=== PATIENT | female | born 1960 | race Caucasian/White ===

== ENCOUNTER 2016-11-18 12:31 | Emergency (ER) | payer SELFPAY ==
[~2016-11-18] VITALS: Ht 160 cm; Wt 74.0 kg
[~2016-11-18 12:31] MED LIST: IBUP800T23 PO; NORV5TAB PO
[2016-11-18 12:35] VITALS: BP 180/120; PULSE 92; RESP 16; TEMP 98.5; O2SAT 94
--- NOTE | 2016-11-18 12:46 | PD ---
HPI Chief Complaint: Injury Time Seen by Provider: 12:46 Travel History International Travel<30 days: No Contact w/Intl Traveler<30days: No Traveled to known affect area: No History of Present Illness HPI 56-year-old female presents to the emergency department for evaluation of right ankle injury that occurred 2 days ago. Patient states that she got up in the middle of the night to get a drink of water and accidentally tripped over one of her dogs toys in her kitchen. States that she landed on her right ankle. Denies head trauma or loss of consciousness. States that she's had pain and swelling in the ankle since the injury occurred. Pain is aggravated with weightbearing and movement. Denies any alleviating factors. She has taken ibuprofen and applied ice with minimal improvement of symptoms. Denies any numbness or tingling or weakness. No prior injury or trauma to this ankle. No other complaints. PFSH Past Medical History Asthma: Yes Cancer: No Diabetes: No Diminished Hearing: No Hepatitis: No Hiatal Hernia: No Hypertension: Yes Reproductive: Yes (ABNORMAL UTERINE BLEEDING, 2009) Respiratory: No Thyroid Disease: No Influenza Vaccination: No ?: Not : 4 Para: 4 Dilation and Curettage (D&C): Yes (2010) Tubal Ligation: Yes Past Surgical History Abdominal Surgery: Yes (ABD. INCISIONAL HERNIA REPAIR WITH MESH IMPLANT, 2010) Appendectomy: Yes Cholecystectomy: Yes Gynecologic Surgery: Yes (2010 D&C) Other Surgery: Yes (BREAST AUGMENTATION) Social History Alcohol Use: Yes (OCCASIONAL) Tobacco Use: Yes (1/2 PPD) Substance Use: No Allergies-Medications (Allergen,Severity, Reaction): Coded Allergies: No Known Allergies (Verified , 11/18/16) Reported Meds & Prescriptions Reported Meds & Active Scripts Active Review of Systems Except as stated in HPI: all other systems reviewed are Neg Physical Exam Narrative GENERAL: Well-nourished and well-developed pleasant female patient in no acute distress who is nontoxic appearing. SKIN: Warm and dry. HEAD: Normocephalic and atraumatic. EYES: No injection, drainage, or hyphema noted. PERRLA. EOMI. ENT: No nasal drainage noted. Oropharynx is clear. NECK: Supple and the trachea is midline. CARDIOVASCULAR: Regular rate and rhythm. RESPIRATORY: Breath sounds are equal bilaterally with no accessory muscle use, wheezing, rhonchi, or crackles. EXTREMITY: The right ankle is swollen and tender over the lateral aspect but the skin is intact and there is no ligamentous instability. The foot and toes are warm and well-perfused. Sensation to pain and light touch is intact. NEUROLOGICAL: Awake, alert, and oriented. Normal speech and gait. Cranial nerves are grossly intact. Data Data Last Documented VS Vital Signs Date Time Temp Pulse Resp B/P Pulse Ox O2 Delivery O2 Flow Rate FiO2 11/18/16 12:35 98.5 92 16 180/120 94 Orders Ankle, Complete ([id number]) (11/18/16 12:46) Splint Or Brace Apply/Monitor (11/18/16 13:32) Crutches (11/18/16 13:32) [facility] Medical Decision Making Medical Screen Exam Complete: Yes Emergency Medical Condition: Yes Differential Diagnosis Ankle sprain versus contusion versus fracture Narrative Course 56-year-old female presents to the emergency department for evaluation of right ankle injury that occurred 2 days ago. Patient is afebrile, vital signs are stable. The right lower extremity is neurovascularly intact. X-ray imaging has been ordered and is pending. X-ray of the right ankle shows nondisplaced bimalleolar fracture, the ankle mortise is intact. I discussed case with my attending physician Dr. Daniel who also reviewed the x- ray images. We agree that the patient can be placed in a splint, made nonweightbearing and follow-up as an outpatient with orthopedic surgery. Discussed all of this with the patient. She verbalizes understanding and agreement with treatment plan. Diagnosis Primary Impression: Closed right ankle fracture Qualified Code: S82.891A - Closed right ankle fracture, initial encounter Referrals: Godfrey Garner MD Orthopaedic Surgeon Patient Instructions: Ankle Fracture (ED), General Instructions Additional Instructions: Splint. Elevate right foot. Do not bear weight on right foot. Apply ice for 20 minutes on, 20 minutes off. Take medication as prescribed with food and a full glass of water. Do not take Lortab with alcohol or while driving. Follow-up with an orthopedic surgeon. I have provided Dr. Garner's information. Return to the ED for any acute worsening of symptoms. Med/Other Pt SpecificInfo: Prescription(s) given Scripts Hydrocodone-Acetaminophen (Lortab)5-325 Mg Tab1 Tab PO Q6H PRN (PAIN GREATER THAN 6) #20 TAB Ref 0 Prov:Aubrey Daniel MD 11/18/16 Disposition: 01 DISCHARGE HOME Condition: Stable Ольга Coronado Nov 18, 2016 12:46
[2016-11-18] MEDS ORDERED: HYDR-3533 PO (13:33)
--- NOTE | 2016-11-18 13:37 | RADHPO ---
EXAM DATE/TIME: 11/18/2016 13:04 [facility] COMPARISON: No previous studies available for comparison. INDICATIONS : Right ankle pain after sliiping on a dog toy two days ago. MEDICAL HISTORY : Hypertension. Smoker. Asthma. Previous ankle fracture. SURGICAL HISTORY : None. ENCOUNTER: Initial ACUITY: 2 days PAIN SCORE: 10/10 LOCATION: Bimalleolar. FINDINGS: There are complete fractures of the medial malleolus and lateral malleolus and the lateral malleolar fracture is minimally displaced. Soft tissue swelling is seen. CONCLUSION: Bimalleolar fracture. Sherri Dunaway MD on November 18, 2016 at 13:33 Board Certified Radiologist. This report was verified electronically.
== END 2016-11-18 14:20 | disposition home or self-care (01) ==
LOC: PHEFT 12:31
DX: S82.844A Nondisplaced bimalleolar fracture of right lower leg, initial encounter for closed fracture (principal); I10 Essential (primary) hypertension; F17.200 Nicotine dependence, unspecified, uncomplicated; Z87.09 Personal history of other diseases of the respiratory system; Z87.42 Personal history of other diseases of the female genital tract; W18.09XA Striking against other object with subsequent fall, initial encounter; Y92.000 Kitchen of unspecified non-institutional (private) residence as the place of occurrence of the external cause
CPT/HCPCS: 29515; 73610; 99283; E0113

== ENCOUNTER 2017-10-02 14:25 | Emergency (ER) | payer OTHER ==
[~2017-10-02] VITALS: Ht 157.5 cm; Wt 71.0 kg
[~2017-10-02 14:25] MED LIST changes: +HYDR-3533 PO; -IBUP800T23 PO; -NORV5TAB PO
[2017-10-02 14:31] VITALS: BP 207/137; PULSE 98; RESP 16; TEMP 97.8; O2SAT 97
[2017-10-02] MEDS ORDERED: SODIUM CHLORIDE 0.9% FLUSH 10 ML FLUSH IV FLUSH PRN (16:00)
--- NOTE | 2017-10-02 16:01 | PD ---
HPI Chief Complaint: GI Complaint Time Seen by Provider: 15:43 Travel History International Travel<30 days: No Contact w/Intl Traveler<30days: No Traveled to known affect area: No History of Present Illness HPI This patient complains of abdominal pain. Location is left lower quadrant. Duration 2 hours. Severity is moderate. She has some nausea but no vomiting or diarrhea or fever. No alleviating factors. No Exacerbating factors. She has no appendix or gallbladder. She has abdominal hernia repair with mesh. PFSH Past Medical History Asthma: Yes Cancer: No Diabetes: No Diminished Hearing: No Hepatitis: No Hiatal Hernia: No Hypertension: Yes Reproductive: Yes (ABNORMAL UTERINE BLEEDING, 2009) Respiratory: No Thyroid Disease: No : 4 Para: 4 Dilation and Curettage (D&C): Yes (2010) Tubal Ligation: Yes Past Surgical History Abdominal Surgery: Yes (ABD. INCISIONAL HERNIA REPAIR WITH MESH IMPLANT, 2010) Appendectomy: Yes Cholecystectomy: Yes Gynecologic Surgery: Yes (2010 D&C) Other Surgery: Yes (BREAST AUGMENTATION) Social History Alcohol Use: Yes (OCCASIONAL) Tobacco Use: Yes (08/01 PPD) Substance Use: No Allergies-Medications (Allergen,Severity, Reaction): Coded Allergies: No Known Allergies (Verified Adverse Reaction, Unknown, 10/02/17) Reported Meds & Prescriptions Reported Meds & Active Scripts Active Reported Ibuprofen 600 Mg Tab 600 Mg PO DAILY Review of Systems General / Constitutional: No: Fever Eyes: No: Visual changes HENT: No: Headaches Cardiovascular: No: Chest Pain or Discomfort Respiratory: No: Shortness of Breath Gastrointestinal: Positive: Abdominal Pain Genitourinary: No: Dysuria Musculoskeletal: No: Pain Skin: No Rash Neurologic: No: Weakness Psychiatric: No: Depression Endocrine: No: Polydipsia Hematologic/Lymphatic: No: Easy Bruising Physical Exam Narrative GENERAL: Well-nourished, well-developed patient with abdominal pain . SKIN: Focused skin assessment reveals no rash and nodules. Skin is Warm and dry. HEAD: Atraumatic. Normocephalic. EYES: Pupils equal and round. No scleral icterus. No injection or drainage. ENT: No nasal bleeding or discharge. Mucous membranes pink and moist. NECK: Trachea midline. No JVD. CARDIOVASCULAR: Regular rate and rhythm. No murmur appreciated. RESPIRATORY: No accessory muscle use. Clear to auscultation. Breath sounds equal bilaterally. GASTROINTESTINAL: Abdomen soft, left lower quadrant is tender without rebound or guarding , nondistended. Hepatic and splenic margins not palpable. MUSCULOSKELETAL: No obvious deformities. No clubbing. No cyanosis. No edema. NEUROLOGICAL: Awake and alert. No obvious cranial nerve deficits. Motor grossly within normal limits. Normal speech. PSYCHIATRIC: Appropriate mood and affect; insight and judgment normal. Data Data Last Documented VS Vital Signs Date Time Temp Pulse Resp B/P (MAP) Pulse Ox O2 Delivery O2 Flow Rate FiO2 10/02/17 14:31 97.8 98 16 207/137 (160) 97 Orders Orders Basic Metabolic Panel (Bmp) (10/02/17 15:55) Complete Blood Count With Diff (10/02/17 15:55) Prothrombin Time / Inr (Pt) (10/02/17 15:55) Act Partial Throm Time (Ptt) (10/02/17 15:55) Urinalysis - C+S If Indicated (10/02/17 15:55) Ct Abd/Pel W Iv Contrast(Rout) (10/02/17 15:55) Iv Access Insert/Monitor (10/02/17 15:55) NPO (10/02/17 15:55) Sodium Chloride 0.9% Flush (Ns Flush) (10/02/17 16:00) Iohexol 350 Inj (Omnipaque 350 Inj) (10/02/17 17:13) Labs Laboratory Tests Test 10/02/17 16:05 10/02/17 16:10 Urine Color YELLOW Urine Turbidity CLEAR Urine pH 5.5 Urine Specific [place] 1.025 Urine Protein NEG mg/dL Urine Glucose (UA) NEG mg/dL Urine Ketones NEG mg/dL Urine Occult Blood NEG Urine Nitrite NEG Urine Bilirubin NEG Urine Urobilinogen 0.2 MG/DL Urine Leukocyte Esterase NEG Urine RBC 0-3 /hpf Urine WBC 0-2 /hpf Urine Squamous Epithelial Cells 0-5 /hpf Microscopic Urinalysis Comment CULT NOT INDICATED White Blood Count 6.8 TH/MM3 Red Blood Count 5.17 MIL/MM3 Hemoglobin 17.0 GM/DL Hematocrit 48.1 % Mean Corpuscular Volume 93.2 FL Mean Corpuscular Hemoglobin 32.9 PG Mean Corpuscular Hemoglobin Concent 35.3 % Red Cell Distribution Width 13.4 % Platelet Count 194 TH/MM3 Mean Platelet Volume 8.3 FL Neutrophils (%) (Auto) 55.6 % Lymphocytes (%) (Auto) 36.1 % Monocytes (%) (Auto) 5.5 % Eosinophils (%) (Auto) 2.2 % Basophils (%) (Auto) 0.6 % Neutrophils # (Auto) 3.8 TH/MM3 Lymphocytes # (Auto) 2.5 TH/MM3 Monocytes # (Auto) 0.4 TH/MM3 Eosinophils # (Auto) 0.1 TH/MM3 Basophils # (Auto) 0.0 TH/MM3 CBC Comment DIFF FINAL Differential Comment Prothrombin Time 9.9 SEC Prothromb Time International Ratio 1.0 RATIO Activated Partial Thromboplast Time 24.6 SEC Blood Urea Nitrogen 23 MG/DL Creatinine 0.77 MG/DL Random Glucose 94 MG/DL Calcium Level 9.1 MG/DL Sodium Level 139 MEQ/L Potassium Level 4.5 MEQ/L Chloride Level 106 MEQ/L Carbon Dioxide Level 25.5 MEQ/L Anion Gap 8 MEQ/L Estimat Glomerular Filtration Rate 78 ML/MIN MDM Medical Decision Making Medical Screen Exam Complete: Yes Emergency Medical Condition: Yes Medical Record Reviewed: Yes Differential Diagnosis Diverticulitis, colitis, ileus Narrative Course I have reviewed the patient's electronic medical record. Abdominal workup ordered at 1600 1700: CBC and metabolic profiles are normal 1720: Urinalysis is negative 1752: I have rechecked the patient. She is clinically doing well. CT scan results are reviewed with her. Nothing emergent is found. She does have 5.2 cm posterior uterine mass. I reviewed this with her and recommended that she should discuss it with her primary physician. Primary physician couldn't further evaluate with ultrasound if desired. I think it's an incidental finding. Diagnosis Primary Impression: Acute left lower quadrant pain Additional Impression: Uterine mass Additional Instructions: The patient was advised to follow up with their physician and return if they worsen. Discuss uterine findings with your primary physician or follow-up with [facility] for that problem Med/Other Pt SpecificInfo: Other Disposition: DISCHARGE HOME Condition: Stable Gary Nair MD Oct 02, 2017 16:01
[2017-10-02] MEDS ORDERED: IBUP-232 PO (16:25)
[2017-10-02 16:26] LABS: BILIRUBIN, URINE NEG (NEG); BLOOD, URINE NEG (NEG); GLUCOSE,URINE NEG (NEG); KETONE, URINE NEG (NEG); NITRITE,URINE NEG (NEG); PH, URINE 5.5 (5.0-8.5); URINE COLOR YELLOW (YELLW/STRAW); URINE LEUKOCYTE ESTERASE NEG (NEG)
[2017-10-02 16:26] LABS: AUTOMATED NEUTROPHIL # 3.8 TH/MM3 (1.8-7.7); BASOPHIL % 0.6 % (0.0-2.0); EOSINOPHIL # 0.1 TH/MM3 (0-0.4); EOSINOPHIL % 2.2 % (0.0-4.0); HEMATOCRIT 48.1 % (35.0-46.0); LYMPH % 36.1 % (9.0-44.0); LYMPHOCYTE # 2.5 TH/MM3 (1.0-4.8); MEAN CELL VOLUME 93.2 FL (80.0-100.0); MEAN CORPUSCULAR HEMOGLOBIN 32.9 PG (27.0-34.0); MEAN CORPUSCULAR HGB CONC 35.3 % (32.0-36.0); MEAN PLATELET VOLUME 8.3 FL (7.0-11.0); MONO % 5.5 % (0.0-8.0); MONOCYTE # 0.4 TH/MM3 (0-0.9); NEUT % 55.6 % (16.0-70.0); PLATELET COUNT 194 TH/MM3 (150-450); RED BLOOD COUNT 5.17 MIL/MM3 (4.00-5.30); RED CELL DISTRIBUTION WIDTH 13.4 % (11.6-17.2); WHITE BLOOD COUNT 6.8 TH/MM3 (4.0-11.0)
[2017-10-02 16:36] LABS: CALCIUM 9.1 MG/DL (8.5-10.1)
[2017-10-02 16:37] LABS: BICARBONATE 25.5 MEQ/L (21.0-32.0)
[2017-10-02 16:38] LABS: PROTHROMBIN TIME - PATIENT 9.9 SEC (9.8-11.6)
[2017-10-02 16:40] LABS: CREATININE 0.77 MG/DL (0.50-1.00)
[2017-10-02 16:41] LABS: RBC, URINE 0-3 /hpf (0-3); SQUAMOUS EPITHELIAL CELL URINE 0-5 /hpf (0-5); WBC, URINE 0-2 /hpf (0-5)
[2017-10-02] MEDS ORDERED: IOHEXOL 350 MG/ML 10 ML VIAL (for RAD DIAG) IVCONTRAST ONE (17:13)
--- NOTE | 2017-10-02 17:29 | RADRPT ---
EXAM DATE/TIME: 10/02/2017 17:08 [facility] COMPARISON: No previous studies available for comparison. INDICATIONS : Left lower quadrant abdomen pain. IV CONTRAST: 91 cc Omnipaque 350 (iohexol) IV ORAL CONTRAST: No oral contrast ingested. RADIATION DOSE: 12.03 CTDIvol (mGy) MEDICAL HISTORY : Hypertension. SURGICAL HISTORY : Cholecystectomy. Appendectomy.Tubal ligation.Hernia repair. ENCOUNTER: Initial ACUITY: 1 day PAIN SCALE: 7/10 LOCATION: Left lower quadrant abdomen TECHNIQUE: Volumetric scanning of the abdomen and pelvis was performed. Using automated exposure control and ad justment of the mA and/or kV according to patient size, radiation dose was kept as low as reasonably achievable to obtain optimal diagnostic quality images. DICOM format image data is available electro nically for review and comparison. FINDINGS: LOWER LUNGS: The visualized lower lungs are clear. LIVER: Homogeneous density without lesion. There is no dilation of the biliary tree. Prior cholecystectomy. SPLEEN: Normal size without lesion. PANCREAS: Within normal limits. KIDNEYS: Normal in size and shape. There is no mass, stone or hydronephrosis. ADRENAL GLANDS: Within normal limits. VASCULAR: There is no aortic aneurysm. BOWEL/MESENTERY: The stomach, small bowel, and colon demonstrate no acute abnormality. There is no free intraperitone al air or fluid. ABDOMINAL WALL: Within normal limits. RETROPERITONEUM: There is no lymphadenopathy. BLADDER: No wall thickening or mass. REPRODUCTIVE: There is a 5.2 cm low-density mass involve the posterior uterine body/fundus. It is heterogeneous in density. It is not consistent with a cyst. No free fluid within the cul-de-sac. INGUINAL: There is no lymphadenopathy or hernia. MUSCULOSKELETAL: Within normal limits for patient age. CONCLUSION: 1. 5.2 cm mass associated with the uterus. This likely relates to a fibroid but can be further assess ed with pelvic sonography. 2. Prior cholecystectomy. 3. No acute abnormality. Robert Barreto Jr., MD on October 02, 2017 at 17:24 Board Certified Radiologist. This report was verified electronically.
== END 2017-10-02 18:12 | disposition home or self-care (01) ==
LOC: PHED 14:25
DX: R10.32 Left lower quadrant pain (principal); J45.909 Unspecified asthma, uncomplicated; I10 Essential (primary) hypertension; F17.200 Nicotine dependence, unspecified, uncomplicated
CPT/HCPCS: 74177; 80048; 81001; 85025; 85610; 85730; 99284; Q9967